=== PATIENT | female | born 1930 | race Caucasian/White ===

== ENCOUNTER → 2016-10-14 | Outpatient (CLI) | payer OTHER, BC ==
[~2016-10-14] MED LIST: ALEVE220 MG PO; AMARYL2 M1 PO; ANASPAZ0.125 MG SL; ARTHRITIS PAIN650 M2 PO; CENTRUM SILVER1 EAC4 PO; ESTRACE1 TUBE VAG; FIBER TABS625 MG PO; FIBER500 MG PO; FISH OIL 1,001000 M2 PO; INVOKANA100 MG PO; LATANOPROST 0.2.5 ML OPHTHALMIC; LEVEMIR FL100 UNIT/2 SUBQ; LIDODERM 5%1 PATC1 TRANSDERM; LOTREL 5-40 MG1 EACH PO; LUMIGAN2.5 M1 OP; MACRODANTIN100 MG PO; METFORMIN HCL500 MG PO; MYCAMINE100 MG IV; NATEGLINIDE120 MG PO; NITROFURANTOIN100 MG PO; OMEGA-31000 M1 PO; PRAVASTATIN SOD20 MG PO; REFRESH TEARS15 ML OPHTHALMIC; URIBEL CAPSULE1 EACH PO; UROGESIC-BLUE1 EACH PO; VITAMIN D31000 UNI2 PO; VITAMIN E400 UNI2 PO; VITAMIN E400 UNIT PO; VITAMINC500 PO; [UNRECOGNIZED DRUG - REMARK] URETHRAL
[2016-10-14 15:25] VITALS: BP 136/66
[2016-10-14 16:00] VITALS: BP 136/66
== END ==
LOC: OPONC 12:49
DX: B37.9 Candidiasis, unspecified (principal)
CPT/HCPCS: 27001; 95000

== ENCOUNTER → 2016-10-15 | Outpatient (CLI) | payer OTHER, BC | LOC: OPONC 10-14 17:15 | DX: Z45.2 Encounter for adjustment and management of vascular access device (principal) ==

== ENCOUNTER → 2016-10-16 | Outpatient (CLI) | payer OTHER, BC | LOC: OPONC 15:02 | DX: B37.9 Candidiasis, unspecified (principal) ==

== ENCOUNTER → 2016-10-17 | Outpatient (CLI) | payer OTHER, BC ==
[2016-10-17 13:55] VITALS: BP 93/56
[2016-10-17 14:26] LABS: HEMATOCRIT 43.2 % (37.0-47.0); HEMOGLOBIN 14.3 gm/dL (12.0-15.0); MCV 87.8 fL (80.0-100.0); RBC 4.92 mil/uL (4.20-5.00); RDW 14.1 % (10.5-14.5); WBC 8.6 thou/uL (4.0-11.0)
[2016-10-17 14:45] LABS: ALBUMIN 3.1 g/dL (3.4-5.0); CREATININE 1.1 mg/dL (0.6-1.0); POTASSIUM 4.3 mmol/L (3.5-5.1); TOTAL BILIRUBIN 0.5 mg/dL (<0.1-1.0); TOTAL PROTEIN 6.7 g/dL (6.4-8.2)
[2016-10-17 14:59] VITALS: BP 93/56
== END ==
LOC: OPONC 06:22
PROVIDERS: Specialist
DX: B37.9 Candidiasis, unspecified (principal)
CPT/HCPCS: 95000

== ENCOUNTER → 2016-10-18 | Outpatient (CLI) | payer OTHER, BC ==
[2016-10-18 13:51] VITALS: BP 114/56
== END ==
LOC: OPONC 07:47
DX: B37.9 Candidiasis, unspecified (principal)
CPT/HCPCS: 95000

== ENCOUNTER → 2016-10-19 | Outpatient (CLI) | payer OTHER, BC ==
[2016-10-19 13:44] VITALS: BP 104/52
== END ==
LOC: OPONC 06:27
DX: B37.9 Candidiasis, unspecified (principal)
CPT/HCPCS: 95000

== ENCOUNTER → 2016-10-20 | Outpatient (CLI) | payer OTHER, BC ==
[2016-10-20 13:30] VITALS: BP 127/58
== END ==
LOC: OPONC 06:27
DX: B37.9 Candidiasis, unspecified (principal)
CPT/HCPCS: 95000

== ENCOUNTER → 2016-10-21 | Outpatient (CLI) | payer OTHER, BC ==
[2016-10-21 14:06] VITALS: BP 141/48
== END ==
LOC: OPONC 07:08
DX: B37.9 Candidiasis, unspecified (principal)
CPT/HCPCS: 95000

== ENCOUNTER → 2016-10-23 | Outpatient (CLI) | payer OTHER, BC | LOC: OPONC 08:23 | DX: B37.9 Candidiasis, unspecified (principal) ==

== ENCOUNTER → 2016-10-24 | Outpatient (CLI) | payer OTHER, BC ==
[2016-10-24 09:38] LABS: HEMATOCRIT 44.4 % (37.0-47.0); MCH 29.7 pg (26.0-34.0); MCHC 33.8 g/dL (28.0-37.0); MCV 87.8 fL (80.0-100.0); RBC 5.05 mil/uL (4.20-5.00); RDW 13.9 % (10.5-14.5)
[2016-10-24 09:57] LABS: ALBUMIN 3.2 g/dL (3.4-5.0); CALCIUM 9.1 mg/dL (8.5-10.1); CREATININE 1.1 mg/dL (0.6-1.0); POTASSIUM 4.6 mmol/L (3.5-5.1); TOTAL BILIRUBIN 0.5 mg/dL (<0.1-1.0); TOTAL PROTEIN 7.3 g/dL (6.4-8.2)
[2016-10-24 12:28] VITALS: BP 119/58
== END ==
LOC: OPONC 07:02
PROVIDERS: Specialist
DX: B37.9 Candidiasis, unspecified (principal)
CPT/HCPCS: 95000; 95001

== ENCOUNTER → 2016-10-25 | Outpatient (CLI) | payer OTHER, BC ==
[2016-10-25 09:03] VITALS: BP 115/67
== END ==
LOC: OPONC 06:26
DX: B37.9 Candidiasis, unspecified (principal)
CPT/HCPCS: 95000

== ENCOUNTER → 2016-10-26 | Outpatient (CLI) | payer OTHER, BC ==
[2016-10-26 13:05] VITALS: BP 106/48
== END ==
LOC: OPONC 06:22
DX: B37.9 Candidiasis, unspecified (principal)
CPT/HCPCS: 95000

== ENCOUNTER → 2016-10-27 | Outpatient (CLI) | payer OTHER, BC ==
[2016-10-27 13:20] VITALS: BP 119/60
== END ==
LOC: OPONC 06:27
DX: B37.9 Candidiasis, unspecified (principal)
CPT/HCPCS: 95000

== ENCOUNTER → 2016-10-28 | Outpatient (CLI) | payer OTHER, BC ==
[2016-10-28 09:00] VITALS: BP 124/66
== END ==
LOC: OPONC 06:40
DX: B37.9 Candidiasis, unspecified (principal)
CPT/HCPCS: 95000